=== PATIENT | male | born 1980 | race Caucasian/White ===

== ENCOUNTER 2024-07-05 17:27 | Emergency (ER) | payer BC, SELFPAY ==
--- NOTE | 2024-07-05 17:35 | ED.MALEGU ---
HPI - Male Genitourinary General Chief complaint: Urogenital-Male Stated complaint: Fever / blood in urine Time Seen by Provider: 07/05/24 17:30 Source: patient Mode of arrival: ambulatory Limitations: no limitations History of Present Illness HPI Narrative: Jan is a 44-year-old male patient presenting to the clinic today with complaints of feeling feverish, lethargic, and having blood in his urine. He reports symptoms started approximately 24 hours ago. Does have history of prostatitis in the past but does not feel as though it is prostatitis. Notice blood his urine today and this prompted him to come in to be evaluated. He denies any back pain or abdominal pain. States he is having burning with urination. He denies any concern for STIs. Related Data Allergies Allergy/AdvReac Type Severity Reaction Status Date / Time No Known Allergies Allergy Verified 07/05/24 17:41 Review of Systems Review of Systems: Pertinent positives per HPI. Patient denies any fever, chills, rash, headache, visual changes, dizziness, cough, runny nose, sore throat, shortness of breath, chest pain, palpitations, nausea, vomiting, diarrhea, constipation, abdominal pain. PMFSH Comments At the time of my signature, I reviewed and agree with the nursing past medical, surgical, social, and family history. There is no relevant family history pertinent to the patient complaint. Exam Narrative: General: Well-developed, well nourished, in no apparent distress. Head: Normocephalic, atraumatic. Cardio: Regular rate and rhythm, s1 and s2 normal, no murmur appreciated. Resp: Clear to auscultation bilaterally, no rhonchi, rales, wheezing or rubs. Abdomen: Soft, pliable, bowel sounds present in all quadrants, non-tender to palpation, no organomegly, no CVAT tenderness. : Deferred Course Course Emergency Course: Portions of this record may have been created with voice recognition software. Level of Care: Express Care Visit Vital Signs Vital signs: Vital Signs Temperature 37.1 C 07/05/24 17:42 Pulse Rate 77 07/05/24 17:42 Respiratory Rate 16 07/05/24 17:42 Blood Pressure 139/88 07/05/24 17:42 Pulse Oximetry 100 07/05/24 17:42 Oxygen Delivery Room Air 07/05/24 17:42 Temperature 37.1 C 07/05/24 17:42 Pulse Rate 77 07/05/24 17:42 Respiratory Rate 16 07/05/24 17:42 Blood Pressure 139/88 07/05/24 17:42 Pulse Oximetry 100 07/05/24 17:42 Oxygen Delivery Room Air 07/05/24 17:42 Vital signs reviewed MDM - Male Genitourinary MDM Narrative Medical decision making narrative: At the time of visit patient is resting comfortably on the exam table. Patient appears to be nontoxic. Labs: Urinalysis is positive for leukocytes, blood, protein, and trace ketones Plan: I suspect patient has UTI. Will place him on Bactrim DS. Supportive measures were discussed with the patient and they voiced understanding discharge instructions and agrees to treatment plan. Return precautions reviewed Differential Diagnosis Differential diagnosis: Likely urinary tract infection, urethritis, epididymitis, prostatitis and other (Cystitis, STI, BPH) Lab Data Labs: Lab Results 07/05/24 Range/Units 17:47 POC Urine Color Yellow POC Urine Clarity Cloudy POC Urine pH 6.0 POC Ur Specif [place] 1.025 POC Urine Protein 2+ (Negative) POC Ur Glucose (UA) Negative (Negative) POC Urine Ketones Trace (Negative) POC Urine Blood 2+ (Negative) POC Urine Nitrite Negative (Negative) POC Urine Bilirubin Negative (Negative) POC Urine Urobilinogen 1.0 POC U Leukocyte Esteras 1+ (Negative) Discharge Plan Discharge Clinical Impression: Urinary tract infection Qualifiers: Urinary tract infection type: acute cystitis Hematuria presence: with hematuria Qualified Code(s): N30.01 - Acute cystitis with hematuria Patient Disposition: Home, Self-Care Condition: Stable Instr
[2024-07-05 17:42] VITALS: BP 139/88; PULSE 77; RESP 16; TEMP 37.1; O2SAT 100
[2024-07-05 17:50] LABS: EDUAAPPEAR Cloudy; EDUABILI Negative (Negative); EDUABLOOD 2+ (Negative); EDUACOLOR1 Yellow; EDUAGLUCOSE Negative (Negative); EDUAKETONE Trace (Negative); EDUALEUKO 1+ (Negative); EDUANITRATE Negative (Negative); EDUAPROTEIN 2+ (Negative); EDUASPGRAVITY 1.025
== END 2024-07-05 18:13 | disposition home or self-care (01) ==
PROVIDERS: Emergency Provider Nurse Practitioner Family
DX: N30.00 Acute cystitis without hematuria (principal)
CPT/HCPCS: 81003; 87086; 99203; G0463